=== PATIENT | male | born 1985 | race Hispanic/Latino ===

== ENCOUNTER 2018-02-24 12:49 | Emergency (ER) | payer MEDICAID, OTHER ==
--- NOTE | 2018-02-24 13:13 | ED PDOC ---
Arrival/HPI - General Time Seen by Provider: 02/24/18 13:07 Historian: Patient - History of Present Illness Narrative History of Present Illness (Text): 02/24/18 13:08 A 33 year old male, with no significant past medical history, presents to the emergency room from PMD's office for further evaluation of sinus headache with eye strain, non- productive cough, body aches, and subjective fever. Patient states that at his PMD's office he began feeling nauseous and wretching and felt like he was going to syncopize. He states that his temperature at his PMD' s office was 100.7. He notes that he did not take any antipyretics today. The patient denies chills, dizziness, sore throat, chest pain, shortness of breath, dyspnea on exertion, abdominal pain, vomiting, diarrhea, neck/back pain, urinary /bowel changes or any other complaint. PMD: Dr. Ileana Pittman Time/Duration: Prior to Arrival Symptom Onset: Sudden Symptom Course: Unchanged Activities at Onset: Rest, Light Context: Home Past Medical History - Provider Review Nursing Documentation Reviewed: Yes - Past History Past History: No Previous - Psychiatric Hx Depression: No Hx Emotional Abuse: No Hx Physical Abuse: No - Past Surgical History Past Surgical History: Non-Contributing - Suicidal Assessment Feels Threatened In Home Enviroment: No Family/Social History - Physician Review Nursing Documentation Reviewed: Yes Family/Social History: No Known Family HX Allergies/Home Meds Allergies/Adverse Reactions: Allergies ibuprofen Allergy (Verified 02/24/18 13:31) URTICARIA Home Medications: Home Meds Medication Instructions Recorded Confirmed Loperamide [Anti-Diarrheal] 1 mg PO 08/27/12 08/27/12 Review of Systems - Physician Review All systems were reviewed & negative as marked: Yes - Review of Systems Constitutional: Fevers. absent: Night Sweats ENT: Sinus Congestion Respiratory: Cough. absent: SOB Cardiovascular: absent: Chest Pain, STEELE Gastrointestinal: Nausea. absent: Abdominal Pain, Stool Changes, Diarrhea, Vomiting Genitourinary Male: absent: Urinary Output Changes Musculoskeletal: Myalgias. absent: Back Pain, Neck Pain Neurological: Headache. absent: Dizziness Physical Exam Vital Signs Reviewed: Yes Vital Signs Temp Pulse Resp BP Pulse Ox 02/24/18 15:33 98.7 F 98 02/24/18 15:32 88 17 115/80 98 02/24/18 15:04 90 17 110/70 97 02/24/18 13:44 98.6 F 96 H 18 108/66 96 Temperature: Afebrile Blood Pressure: Normal Pulse: Tachycardic Respiratory Rate: Normal Appearance: Positive for: Well-Appearing, Non-Toxic, Comfortable Pain Distress: None Mental Status: Positive for: Alert and Oriented X 3 - Systems Exam Head: Present: Atraumatic, Normocephalic Pupils: Present: PERRL Extroacular Muscles: Present: EOMI Conjunctiva: Present: Normal Mouth: Present: Moist Mucous Membranes Neck: Present: Normal Range of Motion. No: Meningeal Signs Respiratory/Chest: Present: Clear to Auscultation, Good Air Exchange. No: Respiratory Distress, Accessory Muscle Use Cardiovascular: Present: Regular Rate and Rhythm, Normal S1, S2. No: Murmurs Abdomen: No: Tenderness, Distention, Peritoneal Signs Back: Present: Normal Inspection Upper Extremity: Present: Normal Inspection. No: Cyanosis, Edema Lower Extremity: Present: Normal Inspection. No: Edema Neurological: Present: GCS=15, CN II-XII Intact, Speech Normal Skin: Present: Warm, Dry, Normal Color. No: Rashes Psychiatric: Present: Alert, Oriented x 3, Normal Insight, Normal Concentration Medical Decision Making ED Course and Treatment: 02/24/18 13:14 Impression: A 33 year old male presents to the emergency room with a complaint of sinus congestion, headache, non-productive cough, body aches, fever, nausea, and near- syncope. Plan: -- EKG -- Chest X-ray -- Labs -- Tylenol and IV Fluids -- Reassess and disposition Progress Notes: 02/24/18 13:47 Patient afebrile and well appearing. No recent anti-pyretic use Chest X-ray Dictator : Margarito Medina MD Report Date : 02/24/2018 14:14:56 IMPRESSION: No active disease. 02/24/18 15:11 Patient is afebrile and well appearing with supple neck. Symptoms seem more consistent with viral illness. Labs grossly normal. EKG shows NSR at 98bpm with normal intervals and no ST changes. 02/24/18 15:23 On reevaluation the patient feels better and is in no acute distress. I have discussed the results and plan with the patient, who expresses understanding. Patient given the opportunity to ask question, all questions were answered and there is agreement with the plan to discharge. Patient is stable for discharge. Patient was instructed to follow up with physician/clinic in 1-2 days or return if symptoms persist/worsen or new concerning symptoms arise. 02/24/18 16:29 - Lab Interpretations Lab Results: 02/24/18 13:31 02/24/18 14:30 Lab Results 02/24/18 14:30: Sodium 138, Potassium 3.9, Chloride 97 L, Carbon Dioxide 30, Anion Gap 15, BUN 10, Creatinine 0.8, Est GFR ( Amer) > 60, Est GFR (Non- Af Amer) > 60, Random Glucose 113 H, Calcium 9.4, Total Bilirubin 1.0, AST 66 H , ALT 93 H, Alkaline Phosphatase 89, Total Protein 7.7, Albumin 4.5, Globulin 3.2, Albumin/Globulin Ratio 1.4 02/24/18 13:31: WBC 4.8, RBC 4.40, Hgb 14.7, Hct 40.5 L, MCV 92.0, MCH 33.4, MCHC 36.3, RDW 12.6, Plt Count 195, MPV 10.0, Gran % 65.6, Lymph % (Auto) 23.2, Villalba % (Auto) 10.8 H, Eos % (Auto) 0.2 L, Baso % (Auto) 0.2, Gran # 3.17, Lymph # (Auto) 1.1 L, Villalba # (Auto) 0.5, Eos # (Auto) 0.0, Baso # (Auto) 0.01 I have reviewed the lab results: Yes - RAD Interpretation Radiology Orders: 02/24/18 13:31 CHEST TWO VIEWS (PA/LAT) [RAD] Stat - EKG Interpretation Interpreted by ED Physician: Yes Type: 12 lead EKG - Medication Orders Current Medication Orders: Discontinued Medications Acetaminophen (Tylenol 325mg Tab) 975 mg PO STAT STA Stop: 02/24/18 13:33 Last Admin: 02/24/18 13:53 Dose: 975 mg Sodium Chloride (Sodium Chloride 0.9%) 1,000 mls @ 999 mls/hr IV .Q1H1M STA Stop: 02/24/18 14:32 Last Admin: 02/24/18 13:53 Dose: 999 mls/hr eMAR Start Stop Document 02/24/18 13:53 SF (Rec: 02/24/18 13:53 SF [id number]) Intravenous Solution Start Date 02/24/18 Start Time 13:53 End Date 02/24/18 End time 14:54 Total Infusion Time 61 - Scribe Statement The provider has reviewed the documentation as recorded by the Sheriibhector Mcpherson Provider Scribe Attestation: All medical record entries made by the Scribe were at my direction and personally dictated by me. I have reviewed the chart and agree that the record accurately reflects my personal performance of the history, physical exam, medical decision making, and the department course for this patient. I have also personally directed, reviewed, and agree with the discharge instructions and disposition. Disposition/Present on Arrival - Present on Arrival Any Indicators Present on Arrival: No - Disposition Have Diagnosis and Disposition been Completed?: Yes Diagnosis: Viral illness, Near syncope Disposition: HOME/ ROUTINE Disposition Time: 15:12 Patient Plan: Discharge Condition: GOOD Discharge Instructions (ExitCare): Viral Upper Respiratory Infection, Adult (DC ), Syncope (Fainting) (DC), Near Fainting (DC) Additional Instructions: Follow-up with PMD within 2 days. Rest, motrin and fluids. Return to ED if condition worsens. Referrals: Vignesh Meraz MD [Primary Care Provider] - Follow up with primary Forms: WORK NOTE
[2018-02-24] MEDS ORDERED: Sodium Chloride 0.9% 1,000 ML IV STA (13:32)
[2018-02-24 13:36] VITALS: BMI 33.1
--- NOTE | 2018-02-24 14:16 | RAD ---
Date of service: 02/24/2018 HISTORY: cough COMPARISON: No prior. TECHNIQUE: Chest PA and lateral FINDINGS: LUNGS: No active pulmonary disease. PLEURA: No significant pleural effusion identified. No pneumothorax apparent. CARDIOVASCULAR: Normal. OSSEOUS STRUCTURES: No significant abnormalities. VISUALIZED UPPER ABDOMEN: Normal. OTHER FINDINGS: None. IMPRESSION: No active disease.
[2018-02-24 14:40] LABS: BASO # 0.01 K/mm3 (0.0-2.0); BASO % 0.2 % (0.0-3.0); EOS % 0.2 % (1.5-5.0); GRAN # 3.17 (1.4-6.5); GRAN % 65.6 % (50.0-68.0); HEMOGLOBIN 14.7 g/dL (14.0-18.0); LYMPH # 1.1 (1.2-3.4); LYMPH % 23.2 % (22.0-35.0); MEAN CORPUSCULAR HEMOGLOBIN 33.4 pg (25.0-35.0); MEAN CORPUSCULAR HGB CONC 36.3 g/dl (31.0-37.0); MONO # 0.5 (0.1-0.6); MONO % 10.8 % (1.0-6.0); RBC 4.4 10^6/uL (3.5-6.1); RED CELL DISTRIBUTION WIDTH 12.6 % (11.5-14.5); WHITE BLOOD COUNT 4.8 10^3/ul (4.5-11.0)
[2018-02-24 14:44] LABS: BLOOD UREA NITROGEN 10 mg/dL (7-21); GFR AFRICAN-AMERICAN > 60; GFR NON-AFRICAN AMERICAN > 60
[2018-02-24 14:45] LABS: ALB/GLOB RATIO 1.4 (1.1-1.8); ALBUMIN 4.5 g/dL (3.0-4.8); ALT/SGPT 93 U/L (7-56); AST/SGOT 66 U/L (17-59); CALCIUM 9.4 mg/dL (8.4-10.5)
[2018-02-24 15:04] VITALS: RESP 17
[2018-02-24 15:33] VITALS: BP 115/80; PULSE 88; O2SAT 98
[2018-02-24 15:35] VITALS: TEMP 98.7
--- NOTE | 2018-02-24 18:53 | CARD ---
APPROVED REPORT Date of service: 02/24/2018 EKG Measurement Heart [id number] MD [id number] <Conclusion> Poor data quality, interpretation may be adversely affected Normal sinus rhythm Normal ECG
== END 2018-02-24 15:33 | disposition home or self-care (01) ==
LOC: ED 12:49
DX: R55 Syncope and collapse (principal); B34.9 Viral infection, unspecified
CPT/HCPCS: 71046; 80053; 85025; 93005; 96360; 99285; J7030